=== PATIENT | female | born 1965 | race Caucasian/White ===

== ENCOUNTER 2016-11-01 17:05 | Observation (INO) | payer OTHER ==
[~2016-11-01] VITALS: Ht 170.2 cm; Wt 95.3 kg
--- NOTE | 2016-11-01 17:19 | NUR ---
PT TO ED WITH C/O LEFT NECK AND LEFT ARM PAIN, SEEN AT [facility] FOR THE SAME ON TUESDAY, WAS ADMITTED HAD NEGATIVE CARIDAC WORK UP AND NEGATIVE STRESS TEST, DC HOME TO F/U WITH COMMERCIAL LENDER AND PMD FOR HIGH BLOOD PRESSURE AND MRI OF THE NECK. PT CALLED PMD DR MAYER AND TOLD TO GO BACK TO THE ER, BUT DIDN'T WANT TO GO BACK TO [facility]. HAD NEGATIVE US FOR LEFT DVT ALSO.
--- NOTE | 2016-11-01 17:32 | NUR ---
APPRECIATE TRIAGE NOTE. PT AMBULATORY TO ROOM 6. EKG IN PROGRESS. AWAITING PROVIDER EVAL.
[2016-11-01] MEDS ORDERED: ASPIRIN325 M2 PO (17:42)
--- NOTE | 2016-11-01 17:43 | ED NEURO DEFICIT/STROKE ---
See Addendum History of Present Illness General Chief Complaint: Neck/Upper Back Pain/Injury Stated Complaint: SIB DR SKY FOR ?"MINI STROKES", MULTI SYMPTOM Source: patient, old records Exam Limitations: no limitations Vital Signs & Intake/Output Vital Signs & Intake/Output Vital Signs Date Time Temp Pulse Resp B/P Pulse O2 O2 Flow FiO2 Ox Delivery Rate 11/02 2051 71 128/77 11/02 2031 71 138/78 11/01 2009 74 148/65 11/01 2008 98.0 74 17 148/63 11/01 1908 98.0 74 17 169/90 98 Room Air 11/01 1730 187/86 11/01 1730 80 182/102 11/01 1713 98.0 85 18 164/112 98 Room Air Allergies Coded Allergies: No Known Allergies (11/01/16) Reconcile Medications Aspirin (Aspirin*) 325 MG TABLET 1 TAB PO ONCE PAIN (Reported) Triage Note: PT TO ED WITH C/O LEFT NECK AND LEFT ARM PAIN, SEEN AT [facility] FOR THE SAME ON TUESDAY, WAS ADMITTED HAD NEGATIVE CARIDAC WORK UP AND NEGATIVE STRESS TEST, DC HOME TO F/U WITH LABOR REPRESENTATIVE AND PMD FOR HIGH BLOOD PRESSURE AND MRI OF THE NECK. PT CALLED PMD DR MAYER AND TOLD TO GO BACK TO THE ER, BUT DIDN'T WANT TO GO BACK TO [facility]. Triage Nurses Notes Reviewed? yes Onset: Abrupt Duration: day(s): (6), intermittent, waxing and waning Timing: recent history Severity: moderate New Weakness: LUE, LLE, left facial Altered Sensations: LLE, right facial, left facial Vision Problem? No Glaucoma? No Baseline: alert, oriented x 3 Associated Symptoms: weakness HPI: 51-year-old female with no known medical history presents emergency room complaining that 6 day history of intermittent episodes of left-sided body numbness tingling and weakness from her face down to her lower extremities. She states the symptoms wax and wane in intensity and come on randomly lasting at most for 1 hour. She states that she's been checking her blood pressure at work and home and has been elevated. She was seen at [facility] last week and the symptoms began and states that she had a full cardiac workup however they did not do a CAT scan of her head and discharge her home with only an aspirin. They told her at the time she states that her blood pressure was elevated however she is not sent home on any medication. There is no confusion per family she denies any the symptoms at this time no fever chills or headache no vision changes nausea or vomiting no abdominal pain (MIRELLA ORLANDO) Past History Travel History Traveled to [place] past 21 day No Medical History Any Pertinent Medical History? 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 No (MIRELLA ORLANDO) Review of Systems Review of Systems Constitutional: Reports: no symptoms, see HPI. All Other Systems: Reviewed and Negative Comments Review of systems: See HPI, All other systems negative. Constitutional, no chills no fever, no malaise HEENT: No visual changes no sore throat no congestion Cardiovascular: No chest pain , no palpitation Skin, no jaundice no rashes, no change in skin Respiratory: No dyspnea no cough no sputum GI: No nausea no vomiting, no diarrhea, : No dysuria Muscle skeletal: No joint pain, no back pain, no neck pain, Neurologic: No numbness no headache Psych: No stress Heme/endocrine: No bruising no bleeding Immunology: No lymphadenopathy (MIRELLA ORLANDO) Physical Exam Physical Exam General Appearance: well developed/nourished, no apparent distress, alert, awake Cranial Nerves: normal hearing, normal speech, PERRL Comments: Well-developed well-nourished person in no acute distress HEENT: Normal EENT exam; PERRL, EOMI, no nystagmus. HEAD is atraumatic. moist mucous membranes. Neck: Supple, no bruit normal range of motion without pain or tenderness Back: Nontender, no CVA tenderness. Full range of motion Cardiovascular: Regular rate and rhythms no murmurs rubs or gallops Respiratory: Chest nontender.There were no bony deformities, no asymmetry. No respiratory distress. Patient speaking in full complete sentences. Breath sounds clear to auscultation bilaterally: NO W/R/R Abdomen: Soft, nontender nondistended, no appreciable organomegaly. Normal bowel sounds. No rebound/guarding Extremity: No edema, full range of motion of extremities, normal and equal pulses bilaterally, 5 out of 5 strength noted to bilateral upper and lower extremities Neuro: Alert oriented x3, motor sensory normal, cranial nerves II through XII grossly intact. There were no obvious focal neurologic abnormalities. Skin: No appreciable rash on exposed skin, skin is warm and dry. Psych: Mood and affect is normal, memory and judgment is normal. Core Measures CVA/TIA Diagnosis: Yes NIH Stroke Scale: Total 0 Severe Sepsis Present: No Septic Shock Present: No (RICH NICK,MIRELLA) Progress Differential Diagnosis: Castaneda's Palsy, drug intoxication, electrolyte imbalance, encephalitis, intracranial Hem., intracranial mass/tumor, meningitis, migraine KUMAR, seizure disorder, stroke, subarachnoid Hem., vertebrobasilar insuff. Plan of Care: Orders Procedure Date/time Status Regular Diet 11/02 B Active Vital Signs 11/01 2056 Active Code Status 11/01 2056 Active Patient Data 11/[address] in observation 11/01 2012 Active Add-on Test (ER Only) 11/01 1830 Active Add-on Test (ER Only) 11/01 1824 Active Telemetry/Qa Automation Developer 11/01 175 Active PARTIAL THROMBOPLASTIN TIME 11/01 1735 Complete PROTHROMBIN TIME 11/01 1735 Complete HUMAN BETA HCG SCREEN 11/01 1735 Complete TROPONIN LEVEL 11/01 1721 Complete COMPREHENSIVE METABOLIC PANEL 11/01 1721 Complete CBC WITHOUT DIFFERENTIAL 11/01 1721 Complete EKG 11/01 1721 Active Laboratory Tests 11/01/16 1758: Total Beta HCG Cancelled 11/01/16 1757: APTT Cancelled 11/01/16 1735: Anion Gap 11, Estimated GFR > 60, BUN/Creatinine Ratio 22.9, Glucose 94, Calcium 10.0, Total Bilirubin 0.5, AST 24, ALT 32, Alkaline Phosphatase 57, Troponin I < 0.01, Total Protein 8.3 H, Albumin 4.5, Globulin 3.8, Albumin/Globulin Ratio 1.2, Total Beta HCG NEGATIVE, PT 9.9, INR 0.94, APTT 34, CBC w Diff NO MAN DIFF REQ, RBC 4.74, MCV 86.8, MCH 28.3, RDW 13.9, MPV 8.3, Gran % 59.0, Lymphocytes % 32.3, Monocytes % 7.3, Eosinophils % 0.9, Basophils % 0.5, Absolute Granulocytes 3.7, Absolute Lymphocytes 2.0, Absolute Monocytes 0.5, Absolute Eosinophils 0.1, Absolute Basophils 0, PUBS MCHC 32.5 L LABS ORDERED, OLD RECORSD REVIEWED, PT NEUROLOGICALLY INTACT AT THIS TIME, NO CRANIAL DEFIFICTS ABCD SCORE 4 points Per the validation study, 4-5 points: Moderate Risk 2-Day Stroke Risk: 4.1% 7-Day Stroke Risk: 5.9% 90-Day Stroke Risk: 9.8% Discussed with the patient and her at length all the lab results CT findings call was placed to neurology patient again is neurologically intact at this time call placed to neuro Case discussed with Dr. monroe d/w dr rice will place in tele obs (RICH NICK,MIRELLA) Diagnostic Imaging: Viewed by Me: CT Scan. Discussed w/RAD: CT Scan. Radiology Impression: PATIENT: YOLIE EVLÁSQUEZ PRESENT AGE: 51 PATIENT ACCOUNT NO: [id number] : 67 LOCATION: [facility] ORDERING PHYSICIAN: MIRELLA NICK SERVICE DATE: 11/01/16 EXAM TYPE: CAT - CT HEAD WO IV CONTRAST EXAMINATION: CT HEAD WITHOUT CONTRAST CLINICAL INFORMATION: Left-sided weakness. COMPARISON: None TECHNIQUE: Contiguous axial imaging was performed from the skull base to vertex without intravenous administration of contrast. DLP: 529.16 mGy-cm FINDINGS: There is no evidence of acute intracranial hemorrhage or territorial infarction. No abnormal mass effect or midline shift is seen. Goldman to white matter differentiation is well preserved. No extra-axial fluid collections are identified. The ventricles are normal in size. There is no abnormal attenuation within the brain parenchyma. The osseous structures and soft tissues are normal. The mastoid air cells and visualized portions of the paranasal sinuses are well aerated. IMPRESSION: No acute intracranial pathology. DICTATED BY: ALFREDO GERARD MD DATE/TIME DICTATED:11/01/161937 ENGINEERING OPERATOR:MARYCHUY DATE/TIME TRANSCRIBED:1937 CONFIDENTIAL, DO NOT COPY WITHOUT APPROPRIATE AUTHORIZATION. < Electronically signed in Other Vendor System> SIGNED BY: ALFREDO GERARD MD 11/01/161943 Initial ED EKG: NORMAL SINUS AT 70, NO ACUTE st SEGMENT CHANGES NORMAL AXIS Rhythm Strip: normal sinus rhythm (MIRELLA ORLANDO) Departure Departure Time of Disposition: 2016 Disposition: STILL A PATIENT Condition: Stable Clinical Impression Primary Impression: TIA (transient ischemic attack) Departure Forms: Customer Survey General Discharge Information Observation Note Spoke With: TANA RICE MD Physician Advisor Notified: YUMIKO OSHEA,TERRI Knapp Patient In: Non-ED OBS Care Area Rationale for Observation: My rational for observation is as follows neuro consult trend labs telemetry monitoring premature discharge in medically harmful (MIRELLA ORLANDO) PA/MANAGER MBA Co-Sign Statement Statement: ED Attending supervision documentation- [] I saw and evaluated the patient. I have also reviewed all the pertinent lab results and diagnostic results. I agree with the findings and the plan of care as documented in the PA's/MANAGER MBA's documentation. [X] I have reviewed the ED Record and agree with the PA's/MANAGER MBA's documentation. [] Additions or exceptions (if any) to the PAs/MANAGER MBA's note and plan are summarized below: [] (SHAY OSHEA,CELINA)
[2016-11-01 17:52] LABS: ABSOLUTE BASOPHIL COUNT 0 /CUMM (0.0-0.2); ABSOLUTE EOSINOPHIL COUNT 0.1 /CUMM (0.0-0.7); ABSOLUTE GRANULOCYTE CT 3.7 /CUMM (1.4-6.5); ABSOLUTE MONOCYTE COUNT 0.5 /CUMM (0.10-0.60); BASOPHIL % 0.5 % (0.0-2.0); EOSINOPHIL % 0.9 % (0-5); HEMATOCRIT 41.2 % (37-47); MEAN CORPUSCULAR HGB 28.3 PG (27.0-31.0); MEAN CORPUSCULAR HGB CONC 32.5 G/DL (33.0-37.0); MEAN CORPUSCULAR VOLUME 86.8 FL (81.0-99.0); MEAN PLATELET VOLUME 8.3 FL (7.4-10.4); PLATELET COUNT 309 /CUMM (130-400); RBC DISTRIBUTION WIDTH 13.9 % (11.5-14.5); RED BLOOD CELL CT 4.74 /CUMM (4.20-5.40); WHITE BLOOD CELL COUNT 6.3 /CUMM (4.8-10.8)
--- NOTE | 2016-11-01 18:55 | NUR ---
PARK ATKINSON PT. PT WAITING FOR CAT SCAN, INFORMED WAITING PERFORMED, OFFERS NO COMPLAINTS AT THIS TIME.
[2016-11-01 19:27] LABS: PT 9.9 SEC (9.4-12.5); PTT 34 SEC (25-37)
--- NOTE | 2016-11-01 19:44 | CT SCAN REPORT ---
EXAMINATION: CT HEAD WITHOUT CONTRAST CLINICAL INFORMATION: Left-sided weakness. COMPARISON: None TECHNIQUE: Contiguous axial imaging was performed from the skull base to vertex without intravenous administration of contrast. DLP: 529.16 mGy-cm FINDINGS: There is no evidence of acute intracranial hemorrhage or territorial infarction. No abnormal mass effect or midline shift is seen. Goldman to white matter differentiation is well preserved. No extra-axial fluid collections are identified. The ventricles are normal in size. There is no abnormal attenuation within the brain parenchyma. The osseous structures and soft tissues are normal. The mastoid air cells and visualized portions of the paranasal sinuses are well aerated. IMPRESSION: No acute intracranial pathology.
--- NOTE | 2016-11-01 20:09 | NUR ---
HIREN EST #20 TO RIGHT HAND. MEDICATED PER EMAR.
--- NOTE | 2016-11-01 20:13 | NUR ---
PARK FULLER TO BEDSIDE TO DISCUSS RESULTS AND POC.
--- NOTE | 2016-11-01 21:20 | History & Physical ---
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
--- NOTE | 2016-11-01 21:23 | NUR ---
BED ASSIGNED 185-1
--- NOTE | 2016-11-01 21:51 | NUR ---
REPORT GIVEN TO ANTONIO BROWN. DISTRI[employer]ION CALLED FOR PT TRANSPORT.
--- NOTE | 2016-11-01 22:06 | NUR ---
HOUSE STAFF AT BEDSIDE FOR EVAL.
[2016-11-01 22:35] VITALS: BP 148/86
--- NOTE | 2016-11-02 00:39 | History & Physical ---
SIMONE CHILDS 11/02/16 0039: General Information and HPI MD Statement: I have seen and personally examined YOLIE VELÁSQUEZ and documented this H&P. The patient is a 51 year old F who presented with a patient stated chief complaint of [left side weakness]. Source of Information: patient, family Exam Limitations: no limitations History of Present Illness: This is 51-year-old female with no known past medical history. Presented to the emergency department with a chief complain off left-sided tingling and numbness sensation that started last week. Patient stated that the left side tingling numbness sensation it's from her face down to her left lower extremity, she states it's on and off, according to reports that last week gradually and she went and took her blood pressure that was 190/100, so she contact her PCP who advised her to go to the nearest emergency department so She was seen at [facility] last week and she states that she had a full cardiac workup that included serial troponin and EKG, EKG stress test and left doppler ultrasound, according to the patient and the paperwork she had from the hospital everything was within normal so she was discharged home on aspirin. Despite that the patient still complaining from the same symptoms. And her blood pressure in the ED was more than 180/90 she received 1 dose of IV labetalol. She denied any fever, chills, nausea, vomiting, abdominal pain, shortness of breath, cough, change in vision or hearing, difficulty ambulating, difficulty carrying her usual daily tasks constipation, diarrhea, gait instability. Patient stated that she went to the chiropractic on October 15 for her neck mobilization. In the ED patient received 1 dose of IV labetalol, head CT scan that was done came back negative for any acute pathological process. 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 . MOTHER (PAD). . Psychosocial History Smoking Status: Never Smoked ETOH Use: denies use Illicit Drug Use: denies illicit drug use Functional Ability ADLs Independent: dressing, eating, toileting, bathing. Ambulation: independent IADLs Independent: shopping, housework, finances, food prep, telephone, transportation , medication admin. Review of Systems Review of Systems Constitutional: Reports: see HPI. Cardiovascular: Reports: see HPI. Respiratory: Reports: see HPI. GI: Reports: see HPI. Genitourinary: Reports: see HPI. Musculoskeletal: Reports: see HPI. Exam & Diagnostic Data Last 24 Hrs of Vital Signs/I&O Vital Signs Date Time Temp Pulse Resp B/P Pulse O2 O2 Flow FiO2 Ox Delivery Rate 11/01 2234 98.2 64 20 148/86 97 Room Air 11/01 2108 71 133/77 11/02 2051 71 128/77 11/02 2031 71 138/78 11/01 2009 74 148/65 11/01 2009 98.0 74 17 148/63 11/01 1908 98.0 74 17 169/90 98 Room Air 11/01 1730 187/86 11/01 1730 80 182/102 11/01 1713 98.0 85 18 164/112 98 Room Air Intake & Output 11/02 0800 11/02 0000 11/01 1600 Intake Total 240 Output Total Balance 240 Intake, Oral 240 Patient 210 lb Weight Physical Exam General Appearance Alert, Oriented X3, Cooperative, No Acute Distress HEENT PERRLA, EOMI Neck Supple Cardiovascular Regular Rate, Normal S1, Normal S2 Lungs Clear to Auscultation, Normal Air Movement Abdomen Normal Bowel Sounds, Soft, No Tenderness Neurological Normal Speech, Strength at 5/5 X4 Ext, Normal Tone, Sensation Intact, Cranial Nerves 3-12 NL, Reflexes 2+ Extremities No Cyanosis, No Edema Last 24 Hrs of Labs/Sharan: Laboratory Tests 11/01/16 1758: Total Beta HCG Cancelled 11/01/16 1757: APTT Cancelled 11/01/16 1735: Anion Gap 11, Estimated GFR > 60, BUN/Creatinine Ratio 22.9, Glucose 94, Hemoglobin A1c Pending, Calcium 10.0, Phosphorus 4.5, Magnesium 1.9, Total Bilirubin 0.5, AST 24, ALT 32, Alkaline Phosphatase 57, Troponin I < 0.01, Total Protein 8.3 H, Albumin 4.5, Globulin 3.8, Albumin/Globulin Ratio 1.2, TSH 2.850 , Free T4 1.39, Total Beta HCG NEGATIVE, PT 9.9, INR 0.94, APTT 34, CBC w Diff NO MAN DIFF REQ, RBC 4.74, MCV 86.8, MCH 28.3, RDW 13.9, MPV 8.3, Gran % 59.0, Lymphocytes % 32.3, Monocytes % 7.3, Eosinophils % 0.9, Basophils % 0.5, Absolute Granulocytes 3.7, Absolute Lymphocytes 2.0, Absolute Monocytes 0.5, Absolute Eosinophils 0.1, Absolute Basophils 0, PUBS MCHC 32.5 L Diagnostic Data EKG Results Normal sinus rhythm. Other Results EXAMINATION: CT HEAD WITHOUT CONTRAST CLINICAL INFORMATION: Left-sided weakness. COMPARISON: None TECHNIQUE: Contiguous axial imaging was performed from the skull base to vertex without intravenous administration of contrast. DLP: 529.16 mGy-cm FINDINGS: There is no evidence of acute intracranial hemorrhage or territorial infarction. No abnormal mass effect or midline shift is seen. Goldman to white matter differentiation is well preserved. No extra-axial fluid collections are identified. The ventricles are normal in size. There is no abnormal attenuation within the brain parenchyma. The osseous structures and soft tissues are normal. The mastoid air cells and visualized portions of the paranasal sinuses are well aerated. IMPRESSION: No acute intracranial pathology. Assessment/Plan Assessment: -Hypertension urgency: His most likely due to a day was essential hypertension giving the patient 2 different sitting of elevated blood pressure above 150/80. Patient will need to be placed on antihypertensive medication, and she will need additional workup as an outpatient. -Left side tingling/numbness sensation: Is no obvious cause for her left-sided tingling and numbness sensation, TIA it's least likely giving the patient doesn' t have primary risk factor for comorbidities or even family history. She had full workup to rule out any cardiac cause, she will need to be ruled out for and diagnosed diabetes mellitus, neurological disease so she will need neurology evaluation in a.m. Plan: -Admit patient to telemetry floor -Vitals every shift, I and O's, neurochecks every 4 -Carotid Doppler ultrasound, echocardiogram -We'll start the patient on low-dose of lisinopril -Check hemoglobin A1c, TSH, free T4, magnesium, lipid panel -Neurology consultation a.m. -Regular diet -Pain pathway -DVT prophylaxis subcutaneous Lovenox -Full code As Ranked By This Provider Problem List: 1. Hypertension Core Measures/Miscellaneous Acute Coronary Syndrome ACS Diagnosis: No Cerebrovascular Accident CVA/TIA Diagnosis: No Congestive Heart Failure CHF Diagnosis: No Venous Thromboembolism VTE Risk Factors: Acute medical illness, Age > 40, Obesity No [facility] VTE prophylaxis d/t: No contraindications No VTE Pharm Prophylaxis d/t: No contraindications VTE Diagnosis: No VTE Type: NONE VTE Confirmed by (Test): NONE Severe Sepsis Severe Sepsis Present: No Septic Shock Septic Shock Present: No Miscellaneous Documentation Attending Case Discussed With: TANA COLLINS MD Primary Care Physician: MONA SKY MD Patient sees these Specialists Neurology Level of Patient Care: Telemetry TANA COLLINS 11/02/16 0552: Attending MD Review Statement Attending Statement Attending MD Statement: examined this patient, discuss w/resident/PA/SEWER REPAIRER, agreed w/resident/PA/SEWER REPAIRER, reviewed EMR data (avail), reviewed images, amended to note Attending Assessment/Plan: Cc: Left-sided weakness PMH: No past medical history available. Patient complaining tingling and numbness of left side of her face and left half of the body, started 6 days back, constant with episodes of exacerbations. She went to [facility] where she was in 24-hour observation in ER, evaluated for cardiac workup/stress test, discharged on aspirin. She came back as the symptoms were persistent. She describes this as tingling and numbness, no weakness, sensations intact, no chest pain. She had gone to chiropractor, done some neck manipulations. Vitals: Unremarkable except blood pressure at presentation 182/102, trended down to 138/78 after IV labetalol. On examination: A O 3, cooperative, no acute distress, neck supple, no JVD, no lymphadenopathy, mucosa moist, no focal neurological deficit, sensations intact, no cerebellar signs, no dependent edema, no obvious skin rashes or inflammation CVS: S1-S2, RRR. RS: Clear to auscultate bilaterally. Abdomen: Soft, NT, ND, bowel sounds present. Labs: CBC, BMP, LFT unremarkable CT head: No acute intracranial pathology A and P Patient has waxing and waning symptoms of left tingling and numbness. On complete neurological examination no focal deficits or sensory loss. Patient was recently diagnosed to have high blood pressure in her ER visit within the last 5 days, currently not on any medications except aspirin. Considering duration of her symptoms is less likely TIA, need to rule out stroke, or other neurological pathology. patient would benefit from MRI. #1 left-sided tingling numbness #2 newly diagnosed hypertension - Place in observation to telemetry floor for 24-48 hour - Neuro check every 6 hours, - Carotid Doppler - 2-D echo - Neurologic consult - Lisinopril 5 mg from tomorrow - Continue aspirin 81 - Lipid profile - Hemoglobin A1c - U tox if not done - Inpatient MRI versus outpatient MRI - Check vitamin B12 level, 25-hydroxy vitamin D.
--- NOTE | 2016-11-02 07:36 | PN- Housestaff ---
Subjective Follow-up For: Left-sided tingling sensation Tele-Events Since Last Visit: Sinus rhythm with first-degree heart block with IN interval 0.24 once around midnight, otherwise heart rate between 65-83. Subjective: Followed up and examined the patient today, she tells me that her tingling sensation has decreased significantly on her left lower extremity, but still has tingling sensation on left upper extremity, her left side of chest, and left jaw. Her initial headache at presentation is completely gone right now. Her vitals have been stable, her blood pressure lowering towards normal, and no other events overnight. Review of Systems Constitutional: Reports: see HPI. Objective Last 24 Hrs of Vital Signs/I&O Vital Signs Date Time Temp Pulse Resp B/P Pulse O2 O2 Flow FiO2 Ox Delivery Rate 11/02 1602 98.7 68 16 134/85 99 Room Air 11/02 1050 66 140/80 11/02 0806 98.5 66 18 136/90 98 Room Air 11/01 223 98.2 64 20 148/86 97 Room Air 11/01 2108 71 133/77 11/02 2051 71 128/77 11/02 2031 71 138/78 11/01 2009 74 148/65 11/01 2009 98.0 74 17 148/63 11/01 1908 98.0 74 17 169/90 98 Room Air Intake & Output 11/02 1600 11/02 0800 11/02 0000 Intake Total 640 240 Output Total Balance 640 240 Intake, Oral 640 240 Number 1 Bowel Movements Patient 95.254 kg Weight Physical Exam General Appearance: Alert, Oriented X3, Cooperative, No Acute Distress Other Physical Findings: HEENT PERRLA, EOMI Neck Supple Cardiovascular Regular Rate, Normal S1, Normal S2 Lungs Clear to Auscultation, Normal Air Movement Abdomen Normal Bowel Sounds, Soft, No Tenderness Neurological Normal Speech, Strength at 5/5 X4 Ext, Normal Tone, sensation of touch intact bilaterally, subjective sensation of tingling present over her left upper extremity and left lower extremity up to her knees, and partially over the site of her neck, Cranial Nerves 3-12 NL, Reflexes 2+, gait not tested Extremities No Cyanosis, No Edema Current Medications: Current Medications Sig/Ela Start time Last Medication Dose Route Stop Time Status Admin Acetaminophen 500 MG Q6P PRN 11/01 2215 AC 11/01 PO 2332 Acetaminophen/ 1 TAB Q6P PRN 11/01 2215 AC Hydrocodone Bitart PO Aspirin Buffered 81 MG DAILY 11/02 1000 AC 11/02 PO 1049 Cholecalciferol 1,000 IU DAILY 11/02 1556 AC 11/02 PO 1737 Enoxaparin Sodium 40 MG DAILY 11/02 1000 AC 11/02 SC 1052 Labetalol HCl 0 .STK-MED ONE 11/01 2006 DC IV Labetalol HCl 10 MG ONCE ONE 11/01 1914 DC 11/01 IV 11/01 Lisinopril 10 MG DAILY 11/02 1000 DC PO Lisinopril 5 MG DAILY 11/02 1000 AC 11/02 PO 1050 Oxycodone/ 1 TAB Q6P PRN 11/01 221 AC Acetaminophen PO Last 24 Hrs of Lab/Sharan Results Last 24 Hrs of Labs/Mics: Laboratory Tests 11/02/16 1330: Urine Opiates Screen < 100.00, Methadone Screen < 40, Barbiturate Screen < 60, Ur Phencyclidine Scrn < 6.00, Amphetamines Screen < 100, U Benzodiazepines Scrn < 85, Urine Cocaine Screen < 50, Urine Cannabis Screen < 5.00 11/02/16 0618: Anion Gap 10, Estimated GFR > 60, BUN/Creatinine Ratio 20.0, Triglycerides 64, Cholesterol 171, LDL Cholesterol, Calc 103, HDL Cholesterol 56, Cholesterol/HDL Ratio 3, Vitamin B12 800, 25-OH Vitamin D Total 31.5, CBC w Diff NO MAN DIFF REQ , RBC 4.50, MCV 87.0, MCH 28.8, RDW 13.7, MPV 8.5, Gran % 54.2, Lymphocytes % 37.4, Monocytes % 7.2, Eosinophils % 0.8, Basophils % 0.4, Absolute Granulocytes 3.2, Absolute Lymphocytes 2.2, Absolute Monocytes 0.4, Absolute Eosinophils 0, Absolute Basophils 0, PUBS MCHC 33.1 11/01/16 1758: Total Beta HCG Cancelled 11/01/16 175: APTT Cancelled Assessment/Plan Assessment: 51 years old female with no significant past medical history, presented to the emergency department with left-sided tingling, and is being evaluated/managed in telemetry unit for the following issues: #Hypertensive urgency: Patient's initial hypotension is now already under control, is not requiring additional blood pressure medications other than lisinopril 5 mg daily -Continue on that, while watching blood pressures closely #Possible TIA/MS Symptoms patient is clearing is suggestive of TIA/stroke but her CAT scan is normal, and is being evaluated for possible sources/risk factors for TIA example carotid Doppler, echocardiogram, and a neurologic evaluation. -Dr. Cuba from neurology services evaluated the patient earlier today and suggested getting an MRI of head, and after discussion with attending we are also getting MRA of her neck tomorrow -With her symptoms being worse on the head as well as the body and evidence, multiple sclerosis is also likely eventual diagnosis, which can be better evaluated with an MRI tomorrow #Diet: Regular diet #DVT prophylaxis: Lovenox #CODE STATUS: Full code Problem List: 1. Hypertension 2. TIA (transient ischemic attack) Pain Ratin Pain Location: - Pain Goal: Pain 4 or less Pain Plan: PRN Tomorrow's Labs & Rationales: MRI AND MRA to r/o stroke, and MS
[2016-11-02 07:49] LABS: ABSOLUTE BASOPHIL COUNT 0 /CUMM (0.0-0.2); ABSOLUTE EOSINOPHIL COUNT 0 /CUMM (0.0-0.7); ABSOLUTE GRANULOCYTE CT 3.2 /CUMM (1.4-6.5); ABSOLUTE LYMPH COUNT 2.2 /CUMM (1.2-3.4); ABSOLUTE MONOCYTE COUNT 0.4 /CUMM (0.10-0.60); BASOPHIL % 0.4 % (0.0-2.0); EOSINOPHIL % 0.8 % (0-5); GRANULOCYTE % 54.2 % (42.2-75.2); HEMATOCRIT 39.2 % (37-47); MEAN CORPUSCULAR HGB 28.8 PG (27.0-31.0); MEAN CORPUSCULAR HGB CONC 33.1 G/DL (33.0-37.0); MEAN PLATELET VOLUME 8.5 FL (7.4-10.4); PLATELET COUNT 268 /CUMM (130-400); RBC DISTRIBUTION WIDTH 13.7 % (11.5-14.5); WHITE BLOOD CELL COUNT 5.9 /CUMM (4.8-10.8)
[2016-11-02 08:06] VITALS: BP 136/90
--- NOTE | 2016-11-02 13:00 | NUR ---
To Ultrasound for carotid ultrasound. Patient alert oriented x3. No complaints. Dr Dash #[id number] notified. ECHO not done yet.
--- NOTE | 2016-11-02 14:51 | ULTRASOUND REPORT ---
EXAMINATION: DUPLEX BILATERAL CAROTID ULTRASOUND CLINICAL INFORMATION: Left sided weakness. Hypertension. COMPARISON: None. TECHNIQUE: \H\B\N\ilateral carotid US was performed using real-time ultrasound and Doppler techniques (integrating B-mode 2D vascular images, Doppler spectral analysis and color flow Doppler imaging). These techniques were utilized to interrogate the extracranial carotid and vertebral arteries bilaterally. The degree of stenosis is based off criteria similar to NASCET. FINDINGS: Right side: 1. No plaque. 2. The common carotid artery velocity is 63 cm/s. 3. The internal carotid artery velocities are 68 cm/s systolic and 26 cm/s diastolic. 4. The external carotid artery velocity is 67 cm/s. Left side: 1. No plaque. 2. The common carotid artery velocity is 86 cm/s. 3. The internal carotid artery velocities are 69 cm/s systolic and 32 cm/s diastolic. 4. The external carotid artery velocity is 83 cm/s. ADDITIONAL FINDINGS: 1. The vertebral arteries show antegrade flow. IMPRESSION: Normal carotid ultrasound.
--- NOTE | 2016-11-02 15:01 | Cons- Neurology ---
"General Information and HPI Consulting Request Date of Consult: 11/02/16 Requested By: TANA COLLINS MD Reason for Consult: Left body paresthesias Source of Information: patient, old records Exam Limitations: no limitations History of Present Illness: 51-year-old woman first noted numbness and tingling paresthesias affecting the left lower face, arm and leg. Paresthesias in the upper face as well. Onset was 1 week ago, symptoms are constant. She has had a vague sense of not being well but no other specific complaints. Evaluation at [facility] found no explanation, including CT. Blood pressure found elevated during the week, fluctuating no known prior history of hypertension. No prior symptoms of similar nature or other neurologic complaints. No associated headache or visual disturbance Allergies/Medications Allergies: Coded Allergies: No Known Allergies (11/01/16) Home Med List: Aspirin (Aspirin*) 325 MG TABLET 1 TAB PO ONCE PAIN (Reported) Current Medications: Current Medications Sig/Ela Start time Last Medication Dose Route Stop Time Status Admin Acetaminophen 500 MG Q6P PRN 11/01 2215 AC 11/01 PO 2332 Acetaminophen/ 1 TAB Q6P PRN 11/01 2215 AC Hydrocodone Bitart PO Aspirin Buffered 81 MG DAILY 11/02 1000 AC 11/02 PO 1049 Enoxaparin Sodium 40 MG DAILY 11/02 1000 AC 11/02 SC 1052 Labetalol HCl 0 .STK-MED ONE 11/01 2006 DC IV Labetalol HCl 10 MG ONCE ONE 11/01 1914 DC 11/01 IV 11/01 Lisinopril 10 MG DAILY 11/02 999 DC PO Lisinopril 5 MG DAILY 11/02 1000 AC 11/02 PO 1050 Oxycodone/ 1 TAB Q6P PRN 11/01 2215 AC Acetaminophen PO Review of Systems Review of Systems: ROS: The patient had no constitutional complaints. Vision clear, no diplopia ENT: No vertigo or tinnitus or hearing loss Cardiac: |Chest pain and palpitations denied Respiratory: No dyspnea or wheezing GI: No abdominal pain nausea or diarrhea. : No dysuria or incontinence Musculoskeletal: No arthralgias, muscle cramps Heme: No unusual bruising or bleeding Psych: Denied depression or anxiety Neuro: See HPI Past History Travel History Traveled to [place] past 21 day No Medical History Blood Transfusion Hx: No Neurological: NONE EENT: NONE Cardiovascular: BP UP AND DOWN STARTED 10/27/16 Respiratory: NONE Gastrointestinal: NONE Hepatic: NONE Renal: NONE Musculoskeletal: NONE Psychiatric: NONE Endocrine: NONE Blood Disorders: NONE Cancer(s): NONE SOCIAL SERVICES DIRECTOR/Reproductive: NONE Surgical History Surgical History: 1 Family History Relations & Conditions If Any: FATHER (lung ca). . MOTHER (PAD). . Psychosocial History Smoking Status: Never Smoked ETOH Use: denies use Illicit Drug Use: denies illicit drug use Functional Ability ADLs Independent: dressing, eating, toileting, bathing. Ambulation: independent IADLs Independent: shopping, housework, finances, food prep, telephone, transportation , medication admin. Exam & Diagnostic Data Vital Signs and I&O Vital Signs Date Time Temp Pulse Resp B/P Pulse O2 O2 Flow FiO2 Ox Delivery Rate 11/02 1050 66 140/80 11/02 0806 98.5 66 18 136/90 98 Room Air 11/01 2234 98.2 64 20 148/86 97 Room Air 11/01 2108 71 133/77 11/02 2051 71 128/77 11/02 2031 71 138/78 11/01 2009 74 148/65 11/01 2009 98.0 74 17 148/63 11/01 1908 98.0 74 17 169/90 98 Room Air 11/01 1730 187/86 11/01 1730 80 182/102 11/01 1713 98.0 85 18 164/112 98 Room Air Intake & Output 11/02 1600 11/02 0800 11/02 0000 Intake Total 640 240 Output Total Balance 640 240 Intake, Oral 640 240 Number 1 Bowel Movements Patient 210 lb Weight Physical Exam: On exam the patient appeared generally well and in no distress. No carotid bruits and no cardiac murmur. No peripheral edema Mental status: Alert, attentive, fully oriented, no language errors, recall and general fund of knowledge seem intact Funduscopic unremarkable Visual diaz full , Eye movements full without nystagmus, pupils midsize equal round and reactive to light. Facial movement normal bilaterally Facial sensation normal bilaterally Hearing intact bilaterally Uvula elevates midline Tongue protrusion is midline Shoulder shrug symmetric Motor power and tone normal in all 4 extremities Sensation intact to primary modes, pin and temperature and light touch. Proprioception intact at the toes, stereognosis intact in the fingers Tendon reflexes normal and symmetric without pathologic signs Coordination no ataxia Gait testing deferred Last 48 Hours of Lab Results: Laboratory Tests 11/02 11/02 11/01 1330 0618 1758 Chemistry Sodium (137 - 145 mmol/L) 140 Potassium (3.5 - 5.1 mmol/L) 4.1 Chloride (98 - 107 mmol/L) 103 Carbon Dioxide (22 - 30 mmol/L) 27 Anion Gap (5 - 16) 10 BUN (7 - 17 mg/dL) 14 Creatinine (0.5 - 1.0 mg/dL) 0.7 Estimated GFR (>60 ml/min) > 60 BUN/Creatinine Ratio (7 - 25 %) 20.0 Triglycerides (<150 mg/dL) 64 Cholesterol (<200 MG/DL) 171 LDL Cholesterol, Calc (65 - 129 mg/dL) 103 HDL Cholesterol (40 - 60 mg/dL) 56 Cholesterol/HDL Ratio (0.00 - 4.23 %) 3 Vitamin B12 (239 - 931 pg/mL) 800 25-OH Vitamin D Total (30 - 100 ng/ml) 31.5 Total Beta HCG Cancelled Hematology CBC w Diff NO MAN DIFF REQ WBC (4.8 - 10.8 /CUMM) 5.9 RBC (4.20 - 5.40 /CUMM) 4.50 Hgb (12.0 - 16.0 G/DL) 13.0 Hct (37 - 47 %) 39.2 MCV (81.0 - 99.0 FL) 87.0 MCH (27.0 - 31.0 PG) 28.8 RDW (11.5 - 14.5 %) 13.7 Plt Count (130 - 400 /CUMM) 268 MPV (7.4 - 10.4 FL) 8.5 Gran % (42.2 - 75.2 %) 54.2 Lymphocytes % (20.5 - 51.1 %) 37.4 Monocytes % (1.7 - 9.3 %) 7.2 Eosinophils % (0 - 5 %) 0.8 Basophils % (0.0 - 2.0 %) 0.4 Absolute Granulocytes (1.4 - 6.5 /CUMM) 3.2 Absolute Lymphocytes (1.2 - 3.4 /CUMM) 2.2 Absolute Monocytes (0.10 - 0.60 /CUMM) 0.4 Absolute Eosinophils (0.0 - 0.7 /CUMM) 0 Absolute Basophils (0.0 - 0.2 /CUMM) 0 PUBS MCHC (33.0 - 37.0 G/DL) 33.1 Toxicology Urine Opiates Screen (>2000 NG/ML) < 100.00 Methadone Screen (>300 NG/ML) < 40 Barbiturate Screen (>200 NG/ML) < 60 Ur Phencyclidine Scrn (>25 NG/ML) < 6.00 Amphetamines Screen (>1000 NG/ML) < 100 U Benzodiazepines Scrn (>200 NG/ML) < 85 Urine Cocaine Screen (>300 NG/ML) < 50 Urine Cannabis Screen (>50 NG/ML) < 5.00 11/01 11/01 1757 1735 Chemistry Sodium (137 - 145 mmol/L) 140 Potassium (3.5 - 5.1 mmol/L) 4.2 Chloride (98 - 107 mmol/L) 100 Carbon Dioxide (22 - 30 mmol/L) 28 Anion Gap (5 - 16) 11 BUN (7 - 17 mg/dL) 16 Creatinine (0.5 - 1.0 mg/dL) 0.7 Estimated GFR (>60 ml/min) > 60 BUN/Creatinine Ratio (7 - 25 %) 22.9 Glucose (65 - 99 mg/dL) 94 Hemoglobin A1c (4.2 - 5.8 %) 5.6 Calcium (8.4 - 10.2 mg/dL) 10.0 Phosphorus (2.5 - 4.5 mg/dL) 4.5 Magnesium (1.6 - 2.3 mg/dL) 1.9 Total Bilirubin (0.2 - 1.3 mg/dL) 0.5 AST (14 - 36 U/L) 24 ALT (9 - 52 U/L) 32 Alkaline Phosphatase (<127 U/L) 57 Troponin I (< 0.11 ng/ml) < 0.01 Total Protein (6.3 - 8.2 g/dL) 8.3 H Albumin (3.5 - 5.0 g/dL) 4.5 Globulin (1.9 - 4.2 gm/dL) 3.8 Albumin/Globulin Ratio (1.1 - 2.2 %) 1.2 TSH (0.270 - 4.200 uIU/mL) 2.850 Free T4 (0.64 - 1.79 ng/dL) 1.39 Total Beta HCG (NEGATIVE) NEGATIVE Coagulation PT (9.4 - 12.5 SEC) 9.9 INR (0.90 - 1.19) 0.94 APTT (25 - 37 SEC) Cancelled 34 Hematology CBC w Diff NO MAN DIFF REQ WBC (4.8 - 10.8 /CUMM) 6.3 RBC (4.20 - 5.40 /CUMM) 4.74 Hgb (12.0 - 16.0 G/DL) 13.4 Hct (37 - 47 %) 41.2 MCV (81.0 - 99.0 FL) 86.8 MCH (27.0 - 31.0 PG) 28.3 RDW (11.5 - 14.5 %) 13.9 Plt Count (130 - 400 /CUMM) 309 MPV (7.4 - 10.4 FL) 8.3 Gran % (42.2 - 75.2 %) 59.0 Lymphocytes % (20.5 - 51.1 %) 32.3 Monocytes % (1.7 - 9.3 %) 7.3 Eosinophils % (0 - 5 %) 0.9 Basophils % (0.0 - 2.0 %) 0.5 Absolute Granulocytes (1.4 - 6.5 /CUMM) 3.7 Absolute Lymphocytes (1.2 - 3.4 /CUMM) 2.0 Absolute Monocytes (0.10 - 0.60 /CUMM) 0.5 Absolute Eosinophils (0.0 - 0.7 /CUMM) 0.1 Absolute Basophils (0.0 - 0.2 /CUMM) 0 PUBS MCHC (33.0 - 37.0 G/DL) 32.5 L Imaging/Other Studies: CT scan of the brain without contrast: No acute intracranial pathology. Carotid ultrasound: Normal carotid ultrasound. Assessment/Plan Assessment: Left alejandra-paresthesia suggestive of a right thalamic or posterior capsular process. In the absence of any prior neurologic history and in the presence of elevated blood pressure, a small lacunar stroke would seem most likely and could be missed by CT. Also, demyelinating diseases within the differential. Recommendations: MRI of the brain with and without gadolinium Concur with institution of aspirin 81 MG EC daily Optimize blood pressure controlled medically Consult Acknowledgment - Thank you for your consult request."
[2016-11-02 16:02] VITALS: BP 134/85
--- NOTE | 2016-11-02 16:34 | PN- Att Addend ---
Attending MD Review Statement Attending Statement Attending MD Statement: examined this patient, discuss w/resident/PA/SAMPLE SUPERVISOR, agreed w/resident/PA/SAMPLE SUPERVISOR, reviewed EMR data (avail), discussed w/nursing Attending Assessment/Plan: Laboratory Tests 11/02/16 1330: Urine Opiates Screen < 100.00, Methadone Screen < 40, Barbiturate Screen < 60, Ur Phencyclidine Scrn < 6.00, Amphetamines Screen < 100, U Benzodiazepines Scrn < 85, Urine Cocaine Screen < 50, Urine Cannabis Screen < 5.00 11/02/16 0618: Anion Gap 10, Estimated GFR > 60, BUN/Creatinine Ratio 20.0, Triglycerides 64, Cholesterol 171, LDL Cholesterol, Calc 103, HDL Cholesterol 56, Cholesterol/HDL Ratio 3, Vitamin B12 800, 25-OH Vitamin D Total 31.5, CBC w Diff NO MAN DIFF REQ , RBC 4.50, MCV 87.0, MCH 28.8, RDW 13.7, MPV 8.5, Gran % 54.2, Lymphocytes % 37.4, Monocytes % 7.2, Eosinophils % 0.8, Basophils % 0.4, Absolute Granulocytes 3.2, Absolute Lymphocytes 2.2, Absolute Monocytes 0.4, Absolute Eosinophils 0, Absolute Basophils 0, PUBS MCHC 33.1 11/01/16 1758: Total Beta HCG Cancelled 11/01/16 1757: APTT Cancelled 11/01/16 1735: Anion Gap 11, Estimated GFR > 60, BUN/Creatinine Ratio 22.9, Glucose 94, Hemoglobin A1c 5.6, Calcium 10.0, Phosphorus 4.5, Magnesium 1.9, Total Bilirubin 0.5, AST 24, ALT 32, Alkaline Phosphatase 57, Troponin I < 0.01, Total Protein 8.3 H, Albumin 4.5, Globulin 3.8, Albumin/Globulin Ratio 1.2, TSH 2.850, Free T4 1.39, Total Beta HCG NEGATIVE, PT 9.9, INR 0.94, APTT 34, CBC w Diff NO MAN DIFF REQ, RBC 4.74, MCV 86.8, MCH 28.3, RDW 13.9, MPV 8.3, Gran % 59.0, Lymphocytes % 32.3, Monocytes % 7.3, Eosinophils % 0.9, Basophils % 0.5, Absolute Granulocytes 3.7, Absolute Lymphocytes 2.0, Absolute Monocytes 0.5, Absolute Eosinophils 0.1, Absolute Basophils 0, PUBS MCHC 32.5 L Vital Signs Date Time Temp Pulse Resp B/P Pulse O2 O2 Flow FiO2 Ox Delivery Rate 11/02 1602 98.7 68 16 134/85 99 Room Air 11/02 1050 66 140/80 11/02 0806 98.5 66 18 136/90 98 Room Air 11/01 2235 98.2 64 20 148/86 97 Room Air 11/019 71 133/77 11/012 71 128/77 11/01 2032 71 138/78 11/01 2009 74 148/65 11/01 2008 98.0 74 17 148/63 11/01 1908 98.0 74 17 169/90 98 Room Air 11/01 1730 187/86 11/01 1730 80 182/102 11/01 1713 98.0 85 18 164/112 98 Room Air Patient seen and examined at bedside. Discussed with patient the care plan. Patient patient was placed in observation status for the chief complaint of left -sided numbness and tingling more prominent in the trunk area than in the legs which has been going on for about 1 week. in emergency room was found to have high blood pressure. Patient denies any history of hypertension. CAT scan of the head was done which was negative for any acute stroke or hemorrhage. Patient was seen by neurology. Patient also gave history of manipulation of her neck by chiropractor about 2-3 weeks ago. Patient says she goes to chiropractor every few months. We will continue with aspirin. We'll get MRI of the brain as well as MRA of the neck. We will follow up on the carotid ultrasound and echocardiogram. Discussed with patient the care plan.
[2016-11-03 00:30] VITALS: BP 122/66
[2016-11-03 08:00] VITALS: BP 114/60
--- NOTE | 2016-11-03 08:16 | PN- Housestaff ---
See Addendum EVELIN OSHEA,MAX 11/03/16 0816: Subjective Follow-up For: Left-sided tingling sensation Complaints: similar but lessened symptoms as yesterday Tele-Events Since Last Visit: Sinus bradycardia, sinus rhythm, heart rate 50-62 Subjective: Followed up and examined the patient today. She is comfortably resting in her chair, reading a newspaper, but without any difficulty, no distress, no complaints. Upon questioning, she did mention that her symptoms have subsided to some extent but not completely. Her vitals have been stable overnight, no overnight issues. Review of Systems Constitutional: Reports: see HPI. Objective Last 24 Hrs of Vital Signs/I&O Vital Signs Date Time Temp Pulse Resp B/P Pulse O2 O2 Flow FiO2 Ox Delivery Rate 11/03 1704 98.5 76 18 124/70 96 Room Air 11/03 0952 114/60 11/03 0800 98.1 72 18 114/60 98 Room Air 11/03 0030 98.1 74 18 122/66 94 Room Air Intake & Output 11/03 1600 11/03 0800 11/03 0000 Intake Total 720 240 720 Output Total Balance 720 240 720 Intake, Oral 720 240 720 Physical Exam General Appearance: Alert, Oriented X3, Cooperative, No Acute Distress Other Physical Findings: HEENT PERRLA, EOMI Neck Supple Cardiovascular Regular Rate, Normal S1, Normal S2 Lungs Clear to Auscultation, Normal Air Movement Abdomen Normal Bowel Sounds, Soft, No Tenderness Neurological Normal Speech, Strength at 5/5 X4 Ext, Normal Tone, sensation of touch intact bilaterally, subjective sensation of tingling has decreased all over significantly but still present in a lesser extent, Cranial Nerves 3-12 NL, Reflexes 2+, gait not tested Extremities No Cyanosis, No Edema Current Medications: Current Medications Sig/Ela Start time Last Medication Dose Route Stop Time Status Admin Acetaminophen 500 MG Q6P PRN 11/015 AC 11/01 PO 2332 Acetaminophen/ 1 TAB Q6P PRN 11/01 2214 AC Hydrocodone Bitart PO Aspirin Buffered 81 MG DAILY 11/02 1000 AC 11/03 PO 0952 Atorvastatin Calcium 80 MG 1700 11/03 1700 AC PO Cholecalciferol 1,000 IU DAILY 11/02 1556 AC 11/03 PO 0952 Enoxaparin Sodium 40 MG DAILY 11/02 1000 AC 11/03 SC 0952 Lisinopril 5 MG DAILY 11/02 1000 AC 11/03 PO 0952 Oxycodone/ 1 TAB Q6P PRN 11/01 2215 AC Acetaminophen PO Assessment/Plan Assessment: 51 years old female with no significant past medical history, presented to the emergency department with left-sided tingling, and is being evaluated/managed in telemetry unit for the following issues: #Hypertensive urgency: Patient's initial hypotension is now already under control, is not requiring additional blood pressure medications other than lisinopril 5 mg daily -Continue on it, while watching blood pressures closely, as the BP has been normal now #Possible TIA Symptom of patient is suggestive of lacunar infract, TIA, or MS, and MRI of brain and MRA of posterior circulation was done today, which did not reveal any significant abnormalities, ruling out multiple sclerosis or any lacunar infarction. The patient can thus be discharged with a follow-up with neurology within 7-10 days of discharge as per neurology consult. #Diet: Regular diet #DVT prophylaxis: Lovenox #CODE STATUS: Full code Problem List: 1. Hypertension 2. Paresthesia Pain Ratin Pain Location: - Pain Goal: Pain 4 or less Pain Plan: prn Tomorrow's Labs & Rationales: - ANTIONETTE JOHN MD 11/03/16 2242: Attending MD Review Statement Attending Statement Attending MD Statement: examined this patient, discuss w/resident/PA/REIMBURSEMENT SPEC, agreed w/resident/PA/REIMBURSEMENT SPEC, reviewed EMR data (avail), discussed with nursing, discussed with case mgmt, reviewed images, amended to note Attending Assessment/Plan: The patient was seen and discussed with house staff and case management. MRI/MRA of neck/head negative for evidence of MS or lacunar infarctions. Will discharge today to home. No need for statin per Neurology. Follow-up with neurology in 1 week.
[2016-11-03] MEDS ORDERED: ASPIRIN EC81 M1 PO (10:10)
[2016-11-03] MEDS ORDERED: LISINOPRIL5 M1 PO (10:29)
--- NOTE | 2016-11-03 10:29 | Patient Discharge Instructions ---
Discharge Instructions General Discharge Information You were seen/treated for: Tingling and numbness on the left side of the face and body Special Instructions: -Please follow-up with your primary care provider within 7 days after discharge. -Please follow-up with your neurologist 7 days after discharge. -We have made changes to your home medications, please read the instructions carefully. -Please come back to the hospital if your symptoms got worse. Diet Continue normal diet: Yes Activity Full Activity/No Limits: Yes (as tolerated) Acute Coronary Syndrome Inclusion Criteria At DC or during hospital stay patient has or had the following: ACS DIAGNOSIS No Discharge Core Measures Meds if any: Prescribed or Continued at Discharge Meds if any: NOT Prescribed or Continued at Discharge Congestive Heart Failure Inclusion Criteria At DC or during hospital stay patient has or had the following: CHF DIAGNOSIS No Discharge Core Measures Meds if any: Prescribed or Continued at Discharge Meds if any: NOT Prescribed or Continued at Discharge Cerebrovascular accident Inclusion Criteria At DC or during hospital stay patient has or had the following: CVA/TIA Diagnosis No Discharge Core Measures Meds if any: Prescribed or Continued at Discharge Meds if any: NOT Prescribed or Continued at Discharge Venous thromboembolism Inclusion Criteria VTE Diagnosis No VTE Type NONE VTE Confirmed by (Test) NONE Discharge Core Measures - Per Current guidelines, there needs to be overlap - treatment for the first 5 days of Warfarin therapy. - If discharged on Warfarin prior to 5 days of - overlap therapy, the patient will need to be - assessed for post discharge needs including - *Post discharge parental anticoagulation - *Warfarin and/or parental anticoagulation education - *Follow up date to check INR post discharge At least 5 days overlap therapy as Inpatient No Meds if any: Prescribed or Continued at Discharge Note: Overlap Therapy is Warfarin and Anticoagulant Meds if any: NOT Prescribed or Continued at Discharge
--- NOTE | 2016-11-03 15:30 | ECHOCARDIOGRAM REPORT ---
YOLIE VELÁSQUEZ Age: 51 : 1965 Gender: F Exam Date: 11/02/2016 16:13 Exam Location: [address] [facility] Ht (in): 67 Wt (lb): 210 BSA: 2.16 BP: 140 / 80 Ordering Physician: SIMONE CHILDS MD Referring Physician: SIMONE CHILDS MD Technologist: [facility] Room Number: 185-01 Indications: TIA Rhythm: Sinus Technical Quality: Fair FINDINGS Left Ventricle Normal size left ventricle. Borderline concentric left ventricular hypertrophy. Normal left ventricular wall motion. Normal left ventricular ejection fraction visually estimated at >70%. Normal left ventricular diastolic filling pattern for age. Right Ventricle Normal right ventricular size and function. Right Atrium Normal right atrial size. Left Atrium Normal left atrial size. Mitral Valve Mildly calcified mitral valve annulus. Structurally normal mitral valve leaflets. Mild mitral regurgitation. Aortic Valve Structurally normal trileaflet aortic valve. No aortic valve stenosis or regurgitation. Tricuspid Valve Structurally normal tricuspid valve. No tricuspid regurgitation. Unable to estimate the right ventricular systolic pressure. Pulmonic Valve Pulmonic valve not well visualized, grossly normal. No pulmonic regurgitation. Pericardium No pericardial effusion. Great Vessels Normal size aortic root. CONCLUSIONS Normal size left ventricle. Borderline concentric left ventricular hypertrophy. Normal left ventricular ejection fraction visually estimated at > 70%. Normal left ventricular diastolic filling pattern for age. Normal right ventricular size and function. Normal atrial size. Mild mitral regurgitation. Unable to estimate the right ventricular systolic pressure. Michael Jiang M.D. (Electronically Signed) Final Date: 03 November 2016 15:29 MEASUREMENTS (Male / Female) Normal Values 2D ECHO LV Diastolic Diameter PLAX 5.1 cm 4.2 - 5.9 / 3.9 - 5.3 cm LV Systolic Diameter PLAX 2.5 cm 2.1 - 4.0 cm LV Fractional Shortening PLAX 51.0 % 25 - 46 % LV Ejection Fraction 2D Teich 82.0 % IVS Diastolic Thickness 0.9 cm LVPW Diastolic Thickness 1.0 cm LV Relative Wall Thickness 0.4 RV Internal Dim ED PLAX 2.6 cm 1.9 - 3.8 cm LVOT Diameter 1.9 cm Aortic Root Diameter 2.9 cm LA Systolic Diameter LX 3.8 cm 3.0 - 4.0 / 2.7 - 3.8 cm LA Volume 32.0 cm 18 - 58 / 22 - 52 cm Ascending Aorta Diameter 3.1 cm DOPPLER AV Peak Velocity 134.0 cm/s AV Peak Gradient 7.2 mmHg AV Mean Velocity 88.1 cm/s AV Mean Gradient 4.0 mmHg AV Velocity Time Integral 33.3 cm LVOT Peak Velocity 125.0 cm/s LVOT Peak Gradient 6.3 mmHg LVOT Mean Velocity 84.5 cm/s LVOT Mean Gradient 3.0 mmHg LVOT Velocity Time Integral 26.8 cm LVOT Stroke Volume 76.0 cm AV Area Cont Eq vti 2.3 cm AV Area Cont Eq pk 2.6 cm MV Peak Velocity 90.3 cm/s MV Peak Gradient 3.3 mmHg MV Mean Velocity 54.6 cm/s MV Mean Gradient 1.0 mmHg Mitral E Point Velocity 82.4 cm/s Mitral A Point Velocity 76.5 cm/s Mitral E to A Ratio 1.1 MV PHT Velocity 95.0 cm/s MV Deceleration [place] 397.0 cm/s MV Pressure Half Time 71.8 ms MV Area PHT 3.1 cm MV Deceleration Time 238.0 ms PV Peak Velocity 95.1 cm/s PV Peak Gradient 3.6 mmHg PV Mean Velocity 74.6 cm/s PV Mean Gradient 2.0 mmHg PV Velocity Time Integral 27.6 cm LV E' Lateral Velocity 11.4 cm/s Mitral E to LV E' Lateral Ratio 7.2 LV E' Septal Velocity 13.4 cm/s Mitral E to LV E' Septal Ratio 6.1
--- NOTE | 2016-11-03 15:55 | PN- Neurology ---
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 Objective Vital Signs and I&Os Vital Signs Date Time Temp Pulse Resp B/P Pulse O2 O2 Flow FiO2 Ox Delivery Rate 11/03 0952 114/60 11/03 0800 98.1 72 18 114/60 98 Room Air 11/03 0030 98.1 74 18 122/66 94 Room Air 11/02 1602 98.7 68 16 134/85 99 Room Air Intake & Output 11/03 1600 11/03 0800 11/03 0000 11/02 1600 11/02 0800 11/02 0000 Intake Total 720 240 720 640 240 Output Total Balance 720 240 720 640 240 Intake, Oral 720 240 720 640 240 Number 1 Bowel Movements Patient 210 lb Weight Physical Exam: Alert, no objective neurological signs Current Medications: Current Medications Sig/Ela Start time Last Medication Dose Route Stop Time Status Admin Acetaminophen 500 MG Q6P PRN 11/01 2215 AC 11/01 PO 2332 Acetaminophen/ 1 TAB Q6P PRN 11/01 2215 AC Hydrocodone Bitart PO Aspirin Buffered 81 MG DAILY 11/02 1000 AC 11/03 PO 0952 Atorvastatin Calcium 80 MG 1700 11/03 1700 AC PO Cholecalciferol 1,000 IU DAILY 11/02 1556 AC 11/03 PO 0952 Enoxaparin Sodium 40 MG DAILY 11/02 1000 AC 11/03 SC 0952 Lisinopril 5 MG DAILY 11/02 1000 AC 11/03 PO 0952 Oxycodone/ 1 TAB Q6P PRN 11/01 2215 AC Acetaminophen PO Results Recent Imaging Studies: MRI just completed but images not available Assessment/Plan Assessment: left side hemiparesthesias suggestive of right thalamic or posterior capsular lacune. 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
[2016-11-03] MEDS ORDERED: ATORVASTATIN CA80 M1 PO (16:03)
--- NOTE | 2016-11-03 16:04 | MRI REPORT ---
EXAMINATION: MR BRAIN WITHOUT AND WITH CONTRAST MRA NECK WITHOUT AND WITH CONTRAST CLINICAL INFORMATION: Left-sided paresthesias. COMPARISON: Head CT 11/01/2016. TECHNIQUE: MRI of the brain was obtained using routine sequences before and after the intravenous administration of 20 mL of Magnevist. A [id number] MRA of the neck was also obtained. Finally, bolus IV and postcontrast MR angiography was performed through the cervical vasculature. Source images were reviewed and additional volumetric and angled MIPs were independently generated and archived by the [facility]. Stenoses are assessed in accordance with NASCET criteria unless otherwise indicated. FINDINGS: BRAIN MRI: There is no pathologic intracranial enhancement. There is no hydrocephalus, extra-axial surface collection, or herniation. No parenchymal signal abnormality. The major flow voids at the skull base are preserved. There is no acute infarct on diffusion-weighted imaging. There is no intracranial hemorrhage on the gradient recalled echo acquisition. The midline structures are normal. The cerebellar tonsils are normally positioned. The cerebellum and brainstem are normal. The craniocervical junction is normal. Osseous marrow signal intensity is homogenous. The visualized soft tissues are unremarkable. Moderate left and small left mastoid effusions. The paranasal sinuses are clear. NECK MRA: The left common carotid artery arises from the brachiocephalic artery, an anatomic variant. The left vertebral artery is dominant and the vertebral arteries are widely patent from their ostia until their entry into the skull base. The diminutive right vertebral artery is better evaluated on the [id number] MRA were it appears widely patent and unremarkable. Both common and internal carotid arteries are normal in course and caliber. Right intradural vertebral artery ends as the PICA, an anatomic variant. Partially imaged intracranial arterial vasculature is unremarkable. IMPRESSION: - Normal MRI of the brain. No acute infarcts, no enhancing lesions, and no parenchymal signal abnormality. - Normal MRA of the neck. - Moderate left and small left mastoid effusions. The paranasal sinuses are clear.
[2016-11-03 17:04] VITALS: BP 124/70
== END 2016-11-03 18:11 ==
LOC: ENRESERVTM → ENRESERVDT → ERH 17:05 → ENPENDDIS 20:13 → ERHI 20:13 → 1NO 20:13
PROVIDERS: Emergency Medicine; Internal Medicine Hematology & Oncology; ADMIT Internal Medicine
DX: I10 Essential (primary) hypertension (principal); R20.9 Unspecified disturbances of skin sensation
CPT/HCPCS: 70552; 70564; 36415; 70553; 80307; 82436; 93005; 93010; 93306; 96372; 96374; A9579; G0378; J1650